=== PATIENT | male | born 1995 | race Caucasian/White ===

== ENCOUNTER 2019-11-03 18:26 | Emergency (ER) | payer BC ==
[~2019-11-03] VITALS: Ht 180.3 cm; Wt 90.7 kg
[2019-11-03] MEDS ORDERED: NEOMY/BACITRA/POLYMYXIN B OINT UD PACKET TP ONE ×2 (18:45→18:49)
[2019-11-03] MEDS ORDERED: IBUPROFEN 800 MG TABLET ONE (18:51)
[2019-11-03 19:00] VITALS: BP 128/69
[2019-11-03] MEDS ORDERED: IBUPROFEN 800 MG TABLET PO ONE (19:00)
--- NOTE | 2019-11-03 19:00 | NUR ---
Patient discharged to home in stable condition. Written and verbal after care instructions given. Patient verbalizes understanding of instructions. Stressed follow up or return to ER for worsening s/s.
== END 2019-11-03 19:01 | disposition home or self-care (01) ==
LOC: ER 18:28
DX: S61.217A Laceration without foreign body of left little finger without damage to nail, initial encounter (principal); W26.0XXA Contact with knife, initial encounter; Y93.G1 Activity, food preparation and clean up; Y92.010 Kitchen of single-family (private) house as the place of occurrence of the external cause
CPT/HCPCS: A4663